=== PATIENT | female | born 1975 | race African-American/Black ===

== ENCOUNTER → 2017-06-06 | Outpatient (CLI) | payer BC | END | disposition home or self-care (01) | LOC: C.PAPS 11:50 | PROVIDERS: ATTEND Obstetrics & Gynecology | DX: Z01.419 Encounter for gynecological examination (general) (routine) without abnormal findings (principal) ==

== ENCOUNTER → 2017-08-08 | Outpatient (CLI) | payer OTHER ==
--- NOTE | 2017-08-19 15:25 | MAMMOGRAPHY REPORT ---
BILATERAL DIGITAL SCREENING MAMMOGRAM TOMOSYNTHESIS WITH CAD: 08/08/2017 CLINICAL HISTORY: Routine screening. Brownish nipple discharge was elicited from the left CC project ion. TECHNIQUE: Breast tomosynthesis in addition to standard 2D mammography was performed. Current study was also evaluated with a Computer Aided Detection (CAD) system. COMPARISON: Comparison is made to exam dated: 01/03/2012 mammogram - [facility]. BREAST COMPOSITION: The tissue of both breasts is extremely dense, which lowers the sensitivity of m ammography. FINDINGS: There are regional versus segmental microcalcifications in the upper outer posterior left breast that may be increased comparing to the prior mammogram performed 01/03/2012 and therefore jayden tional spot magnification views are recommended. There is another possible new tubing of microcalcif ications in the medial posterior right breast on the cc view, warranting additional spot magnificatio n views. There is an asymmetry in the lateral, posterior right breast on CC tomosynthesis slice 414 6/63 measuring 8 mm, for which additional spot compression tomosynthesis views and possible ultrasoun d are recommended. No other suspicious mass, architectural distortion or cluster of microcalcifications is seen. IMPRESSION: ACR BI-RADS CATEGORY 0: INCOMPLETE EVALUATION: NEED ADDITIONAL IMAGING EVALUATION The bilateral microcalcifications and right lateral asymmetry need additional imaging evaluation. The patient will be called to schedule an appointment. Approximately 10% of breast cancers are not detected with mammography. A negative mammographic report should not delay biopsy if a clinically suggestive mass is present. Valerie Looney M.D. ay/:08/18/2017 15:40:38 Third Miller: Romeo GALVAN(Neptali)(M), [facility] letter sent: Addl Imaging 0 BI-RADS Code: ACR BI-RADS Category 0: Incomplete Evaluation: Need Additional Imaging Evaluation
== END | disposition home or self-care (01) ==
LOC: C.MAMM 09:54
PROVIDERS: ATTEND Obstetrics & Gynecology
DX: Z12.31 Encounter for screening mammogram for malignant neoplasm of breast (principal); R92.0 Mammographic microcalcification found on diagnostic imaging of breast; N64.89 Other specified disorders of breast

== ENCOUNTER → 2017-08-27 | Outpatient (CLI) | payer OTHER ==
--- NOTE | 2017-08-27 15:57 | MAMMOGRAPHY REPORT ---
BILATERAL DIGITAL DIAGNOSTIC MAMMOGRAM TOMOSYNTHESIS: 08/27/2017 CLINICAL HISTORY: Callback from screening mammogram for right breast asymmetry and bilateral calcific ations. TECHNIQUE: Breast tomosynthesis in addition to standard 2D mammography was performed. Spot magnific ation bilateral cc and ML views and spot compression right CC and MLO tomosynthesis images were obtai vandana. COMPARISON: Comparison is made to exams dated: 08/08/2017 mammogram - [facility] and 01/03/2012 mammogram - [facility]. BREAST COMPOSITION: The tissue of both breasts is extremely dense, which lowers the sensitivity of m ammography. FINDINGS: Spot magnification views of the left breast demonstrate regional punctate and amorphous harvinder cifications throughout the left upper outer quadrant. Many of the calcifications demonstrate layerin g on the lateral view, and are consistent with benign milk of calcium. Additionally, there are multi ple loose groupings of punctate and round calcifications within the right breast seen on the spot mag nification views. Many of these calcifications also demonstrate layering and are consistent with maryam ign milk of calcium. The bilateral calcifications are probably benign and likely represent milk of c alcium/fibrocystic changes. The previously described asymmetry seen within the right lateral breast on the cc view effaces on the additional spot compression view and has the appearance of normal fibro glandular tissue. IMPRESSION: ACR-BI-RADS CATEGORY 3: PROBABLY BENIGN 1. Bilateral calcifications are probably benign and likely represent milk of calcium/fibrocystic kodi nges. Recommend bilateral diagnostic tomosynthesis mammograms in 6 months to confirm stability. 2. Asymmetry within the right lateral breast effaces on the additional spot compression views, and i s benign and felt to represent normal fibroglandular tissue. The patient has been verbally notified of the results. Approximately 10% of breast cancers are not detected with mammography. A negative mammographic report should not delay biopsy if a clinically suggestive mass is present. Ava Osborn M.D. /:08/27/2017 14:14:17 Policy Change Clerk: Griselda GALVAN(R)([place]), [facility] letter sent: Follow Up Recommended 3 BI-RADS Code: ACR-BI-RADS Category 3: Probably Benign
== END | disposition home or self-care (01) ==
LOC: C.MAMM 12:45
PROVIDERS: ATTEND Obstetrics & Gynecology
DX: R92.1 Mammographic calcification found on diagnostic imaging of breast (principal); R92.8 Other abnormal and inconclusive findings on diagnostic imaging of breast

== ENCOUNTER → 2017-09-19 | Outpatient (CLI) | payer OTHER ==
[2017-09-19 10:41] LABS: LUTEINIZING HORMONE 3.19 IU/L
[2017-09-19 10:42] LABS: FOLLICLE STIMULAT HORMONE 8.5 IU/L
== END | disposition home or self-care (01) ==
LOC: C.LAB1850 09:01
PROVIDERS: ATTEND Obstetrics & Gynecology
DX: Z31.41 Encounter for fertility testing (principal)